=== PATIENT | female | born 1935 | race Caucasian/White ===

== ENCOUNTER 2016-07-28 04:50 | Emergency (ER) | payer MEDICARE, MEDICAID ==
[~2016-07-28] VITALS: Ht 160 cm; Wt 89.1 kg
[~2016-07-28 04:50] MED LIST: AMLO10 PO; ARIC10TA PO; ASPI1TAB69 PO; BACL10TA PO; CHOL1TAB41 PO; CLON0.1T PO; CO Q10CA PO; COLA100C3 PO; FURO1TAB60 PO; GABA300C5 PO; LEVO.05 PO; LOPE2CAP PO; LORA10TA PO; LOVA10TA PO; META48.53 PO; MIRA33504 PO; NAME10TA PO; NU-IRON PO; OXYC1TAB63 PO; POTA10TA2 PO; SERT-129 PO; TRAZ50TA12 PO; TUMS500C CHEW
[2016-07-28 05:01] VITALS: BP 161/76; PULSE 74; RESP 16; TEMP 99.2; O2SAT 92
[2016-07-28] MEDS ORDERED: GABA100C4 PO (05:15)
[2016-07-28] MEDS ORDERED: SODIUM CHLORIDE 0.9% FLUSH 10 ML FLUSH IVF PRN (06:15)
--- NOTE | 2016-07-28 06:46 | RADRPT ---
EXAM DATE/TIME: 07/28/2016 06:30 [facility] COMPARISON: CT BRAIN W/O CONTRAST, February 23, 2016, 11:08. INDICATIONS : Trauma, fell x2 days ago. Complains of head and neck pain. RADIATION DOSE: 31.33 CTDIvol (mGy) MEDICAL HISTORY : Cardiovascular disease. Congestive heart failure. Gastroesophageal reflux disease.Hypertension. Chron ic kidney disease. Uterine cancer. Renal calculi. SURGICAL HISTORY : Hysterectomy. Appendectomy. ENCOUNTER: Initial ACUITY: 2 days PAIN SCALE: 9/10 LOCATION: cranial TECHNIQUE: Multiple contiguous axial images were obtained of the head. Using automated exposure control and adj ustment of the mA and/or kV according to patient size, radiation dose was kept as low as reasonably a chievable to obtain optimal diagnostic quality images. FINDINGS: CEREBRUM: The ventricles are normal for age. No evidence of midline shift, mass lesion, hemorrhage or acute in farction. No extra-axial fluid collections are seen. POSTERIOR FOSSA: The cerebellum and brainstem are intact. The 4th ventricle is midline. The cerebellopontine angle i s unremarkable. EXTRACRANIAL: The visualized portion of the orbits is intact. No sphenoid sinus opacified. SKULL: The calvaria is intact. No evidence of skull fracture. CONCLUSION: 1. No acute findings. Stable white matter ischemic changes since February 2016. Chronic left sphenoid sinus disease. Darrius Vallejo MD on July 28, 2016 at 6:41 Board Certified Radiologist. This report was verified electronically.
--- NOTE | 2016-07-28 06:48 | RADRPT ---
EXAM DATE/TIME: 07/28/2016 06:24 [facility] COMPARISON: No previous studies available for comparison. INDICATIONS : Right shoulder pain. MEDICAL HISTORY : None. SURGICAL HISTORY : None. ENCOUNTER: Initial ACUITY: 1 day PAIN SCORE: 3/10 LOCATION: Bilateral Shoulders FINDINGS: Multiple view examination of the right shoulder demonstrates no evidence of fracture or dislocation. The glenohumeral and acromioclavicular joints are maintained. There is normal range of motion betwe en internal and external rotation. Bony mineralization is normal. CONCLUSION: 1. No acute findings. Darrius Vallejo MD on July 28, 2016 at 6:44 Board Certified Radiologist. This report was verified electronically.
--- NOTE | 2016-07-28 06:51 | RADRPT ---
EXAM DATE/TIME: 07/28/2016 06:30 [facility] COMPARISON: No previous studies available for comparison. INDICATIONS : Trauma, fell x2 days ago. Complains of head and neck pain. RADIATION DOSE: 20.34 CTDIvol (mGy) MEDICAL HISTORY : Gastroesophageal reflux disease. Congestive heart failure. Cardiovascular disease Hypertension. Chron ic kidney disease. Uterine cancer. Renal calculi. SURGICAL HISTORY : Hysterectomy. Appendectomy. ENCOUNTER: Initial ACUITY: 2 days PAIN SCALE: 8/10 LOCATION: neck TECHNIQUE: Volumetric scanning of the cervical spine was performed. Multiplanar reconstructions in the sagittal, coronal and oblique axial planes were performed. Using automated exposure control and adjustment o f the mA and/or kV according to patient size, radiation dose was kept as low as reasonably achievable to obtain optimal diagnostic quality images. FINDINGS: There is no acute fracture or spondylolisthesis and no prevertebral soft tissue swelling. Moderate de generative disc disease in the lower cervical spine. No significant canal stenosis. Mild facet arthro stuart. CONCLUSION: 1. Moderate degenerative disc disease in the lower cervical spine. Mild facet arthropathy. No acute b dashawn abnormality. No significant canal stenosis. Darrius Vallejo MD on July 28, 2016 at 6:47 Board Certified Radiologist. This report was verified electronically.
[2016-07-28 07:00] VITALS: BP 160/80; PULSE 68; RESP 18; O2SAT 94
--- NOTE | 2016-07-28 07:22 | PD ---
HPI Chief Complaint: Fall Time Seen by Provider: 07:10 Travel History International Travel<30 days: No Contact w/Intl Traveler<30days: No Traveled to known affect area: No History of Present Illness HPI 81-year-old female presents to the emergency department by EMS transport from local assisted living facility for complaint of head pain and neck pain after fall. Patient had fall on Friday evening and on Friday evening. Reportedly falls were not associated with loss of consciousness but was not witnessed. Patient denies other injury or complaint. No chest pain no rib pain no shortness of breath no back pain or abdominal pain no pelvic pain or extremity injury. Patient has history of dementia and provides minimal history. Patient also has history of atrial fibrillation, PFSH Past Medical History Hx Anticoagulant Therapy: Yes (WARFARIN) Anemia: Yes Arthritis: Yes Asthma: No Atrial Fibrillation: Yes Autoimmune Disease: No Anxiety: Yes Depression: Yes Heart Rhythm Problems: Yes Cancer: Yes (uterine) Cardiovascular Problems: Yes (CHF) High Cholesterol: Yes Chemotherapy: No Chest Pain: No Congestive Heart Failure: Yes COPD: No Cerebrovascular Accident: No Dementia: Yes Diabetes: No Diminished Hearing: No Gastrointestinal Disorders: Yes (PERITONITIS) GERD: Yes Genitourinary: Yes (UTI) Hiatal Hernia: No Hypertension: Yes Immune Disorder: No Kidney Stones: Yes Neurologic: Yes (NEUROPATHY ) Psychiatric: No Reproductive: No Respiratory: No Immunizations Current: No Migraines: No Radiation Therapy: No Renal Failure: Yes (CKD) Seizures: No Sickle Cell Disease: No Sleep Apnea: No Thyroid Disease: Yes (Pt takes synthroid) Ulcer: No Menopausal: Yes Past Surgical History Abdominal Surgery: No AICD: No Appendectomy: Yes Arteriovenous Shunt: No Cardiac Surgery: No Cholecystectomy: Yes Ear Surgery: No Endocrine Surgery: No Eye Surgery: Yes (cataract left eye) Genitourinary Surgery: No Gynecologic Surgery: Yes (C section) Hysterectomy: Yes Insulin Pump: No Joint Replacement: No Oral Surgery: No Pacemaker: No Thoracic Surgery: No Other Surgery: Yes Social History Alcohol Use: No Tobacco Use: No Substance Use: No Allergies-Medications (Allergen,Severity, Reaction): Coded Allergies: Celebrex (Verified Allergy, Severe, 07/28/16) Hydrocodone (Verified Allergy, Severe, 07/28/16) Codeine (Verified Allergy, Unknown, 07/28/16) Lidoderm (Verified Allergy, Unknown, 07/28/16) Talwin (Verified Allergy, Unknown, 07/28/16) Reported Meds & Prescriptions Reported Meds & Active Scripts Active Lovastatin 10 Mg Tab 10 Mg PO HS Reported Gabapentin 100 Mg Cap 300 Mg PO TID Sertraline (Sertraline HCl) 100 Mg Tab 200 Mg PO DAILY Vitamin D3 (Cholecalciferol) 10,000 Unit Tab 10,000 Units PO Q7D Co Q 10 (Coenzyme Q10 (Ubidecarenone)) 10 Mg Cap 10 Mg PO EVERY OTHER DAY Loperamide (Loperamide HCl) 2 Mg Cap 2 Mg PO DIRECTED PRN One capsule after each loose stool. Not to exceed 8 capsules per day. Baclofen 10 Mg Tab 10 Mg PO TID PRN Trazodone (Trazodone HCl) 50 Mg Tab 50 Mg PO HS Tums (Calcium Carbonate (Antacid)) 500 Mg Chew 500 Mg CHEW TID PRN Oxycodone-Acetaminophen 5-325 mg Tab 1 Tab PO BID PRN Namenda (Memantine) 10 Mg Tab 10 Mg PO BID Potassium Chloride ER (Potassium Chloride) 10 Meq Tab 10 Meq PO DAILY Metamucil Original Texture (Psyllium Hydrophilic Mucilloid) 48.57 % Pow 1 Scoop PO DAILY PRN 1 rounded TEASPOON in 8 oz of liquid at the first sign of irregularity. Synthroid (Levothyroxine Sodium) 50 Mcg Tab 50 Mcg PO DAILY Poly-Iron 150 (Polysaccharide Iron Complex) 150 Mg Cap 150 Mg PO DAILY Clonidine (Clonidine HCl) 0.1 Mg Tab 0.1 Mg PO DAILY Norvasc (Amlodipine Besylate) 10 Mg Tab 10 Mg PO DAILY Review of Systems ROS Limitations: Poor Historian Except as stated in HPI: all other systems reviewed are Neg General / Constitutional: No: Fever HENT: Positive: Headaches, Neck Pain Cardiovascular: No: Chest Pain or Discomfort Respiratory: No: Shortness of Breath Gastrointestinal: No: Vomiting, Abdominal Pain Genitourinary: No: Dysuria Musculoskeletal: No: Pain Skin: No Rash Neurologic: Positive: Headache Hematologic/Lymphatic: No: Easy Bruising Physical Exam Narrative GENERAL: Thinks well-developed elderly female in no acute distress no respiratory distress semi-: GCS 15 SKIN: Warm and dry. HEAD: Atraumatic. Normocephalic. EYES: Pupils equal and round. No scleral icterus. No injection or drainage. ENT: No nasal bleeding or discharge. Mucous membranes pink and moist. NECK: Trachea midline. No JVD. Posterior cervical spine tenderness/pain to palpation and with attempted range of motion. No bony step-off. CARDIOVASCULAR: Regular rate and rhythm. RESPIRATORY: No accessory muscle use. Clear to auscultation. Breath sounds equal bilaterally. GASTROINTESTINAL: Abdomen soft, non-tender, nondistended. Hepatic and splenic margins not palpable. MUSCULOSKELETAL: Extremities without clubbing, cyanosis, or edema. No obvious deformities. NEUROLOGICAL: Awake and alert. No obvious cranial nerve deficits. Motor grossly within normal limits. Five out of 5 muscle strength in the arms and legs. Normal speech. PSYCHIATRIC: Appropriate mood and affect; insight and judgment normal. Data Data Last Documented VS Vital Signs Date Time Temp Pulse Resp B/P Pulse Ox O2 Delivery O2 Flow Rate FiO2 07/28/16 07:00 68 18 160/80 94 Room Air 07/28/16 05:01 99.2 Orders Electrocardiogram (07/28/16 06:01) Basic Metabolic Panel (Bmp) (07/28/16 06:01) Complete Blood Count With Diff (07/28/16 06:01) Magnesium (Mg) (07/28/16 06:01) Ckmb (Isoenzyme) Profile (07/28/16 06:01) Troponin I (07/28/16 06:01) Act Partial Throm Time (Ptt) (07/28/16 06:01) Prothrombin Time / Inr (Pt) (07/28/16 06:01) Ua Includes Microscopic (07/28/16 06:01) Ct Brain W/O Iv Contrast(Rout) (07/28/16 06:01) Ct Cerv Spine W/O Contrast (07/28/16 06:01) Ecg Monitoring (07/28/16 06:01) Iv Access Insert/Monitor (07/28/16 06:01) Oximetry (07/28/16 06:01) Sodium Chloride 0.9% Flush (Ns Flush) (07/28/16 06:15) Apply Cervical Collar (07/28/16 06:01) Shoulder, Complete (>2vws) (07/28/16 ) Cath For Specimen (07/28/16 07:50) Labs Laboratory Tests Test 07/28/16 07:05 White Blood Count 8.6 TH/MM3 Red Blood Count 4.46 MIL/MM3 Hemoglobin 12.4 GM/DL Hematocrit 38.8 % Mean Corpuscular Volume 87.0 FL Mean Corpuscular Hemoglobin 27.9 PG Mean Corpuscular Hemoglobin 32.0 % Concent Red Cell Distribution Width 15.6 % Platelet Count 197 TH/MM3 Mean Platelet Volume 9.5 FL Neutrophils (%) (Auto) 82.1 % Lymphocytes (%) (Auto) 8.3 % Monocytes (%) (Auto) 8.2 % Eosinophils (%) (Auto) 0.9 % Basophils (%) (Auto) 0.5 % Neutrophils # (Auto) 7.1 TH/MM3 Lymphocytes # (Auto) 0.7 TH/MM3 Monocytes # (Auto) 0.7 TH/MM3 Eosinophils # (Auto) 0.1 TH/MM3 Basophils # (Auto) 0.0 TH/MM3 CBC Comment DIFF FINAL Differential Comment Prothrombin Time 10.7 SEC Prothromb Time International 1.0 RATIO Ratio Activated Partial 21.2 SEC Thromboplast Time MDM Medical Decision Making Medical Screen Exam Complete: Yes Emergency Medical Condition: Yes Medical Record Reviewed: Yes Interpretation(s) Last Impressions Head CT 07/28/16 06 Signed Impressions: Service Date/Time: Thursday, July 28, 2016 06:30 - CONCLUSION: 1. No acute findings. Stable white matter ischemic changes since February 2016. Chronic left sphenoid sinus disease. Darrius Vallejo MD Cervical Spine CT 07/28/16 0601 Signed Impressions: Service Date/Time: Thursday, July 28, 2016 06:30 - CONCLUSION: 1. Moderate degenerative disc disease in the lower cervical spine. Mild facet arthropathy. No acute bony abnormality. No significant canal stenosis. Darrius Vallejo MD Shoulder X-Ray 07/28/16 0000 Signed Impressions: Service Date/Time: Thursday, July 28, 2016 06:24 - CONCLUSION: 1. No acute findings. Darrius Vallejo MD Differential Diagnosis ICH OGDEN cervical spine sprain strain fracture contusion fracture cord injury sepsis UTI anemia coagulopathy Narrative Course Patient placed on monitor IV access obtained specimens collected and sent for resulting imaging studies ordered c-collar applied Patient's care signed over to Dr. Hassan at 7:05 AM Vane Benites MD July 28, 2016 07:22
[2016-07-28 07:24] LABS: AUTOMATED NEUTROPHIL # 7.1 TH/MM3 (1.8-7.7); BASOPHIL % 0.5 % (0.0-2.0); EOSINOPHIL # 0.1 TH/MM3 (0-0.4); EOSINOPHIL % 0.9 % (0.0-4.0); HEMATOCRIT 38.8 % (35.0-46.0); HEMO FLAGS DIFF FINAL; LYMPH % 8.3 % (9.0-44.0); LYMPHOCYTE # 0.7 TH/MM3 (1.0-4.8); MEAN CORPUSCULAR HEMOGLOBIN 27.9 PG (27.0-34.0); MONO % 8.2 % (0.0-8.0); NEUT % 82.1 % (16.0-70.0); PLATELET COUNT 197 TH/MM3 (150-450); RED BLOOD COUNT 4.46 MIL/MM3 (4.00-5.30); RED CELL DISTRIBUTION WIDTH 15.6 % (11.6-17.2); WHITE BLOOD COUNT 8.6 TH/MM3 (4.0-11.0)
[2016-07-28 07:48] LABS: APTT (PATIENT) 21.2 SEC (24.3-30.1); PROTHROMBIN TIME - PATIENT 10.7 SEC (9.8-11.6)
[2016-07-28 07:54] LABS: ANION GAP 7 MEQ/L (5-15); BLOOD UREA NITROGEN 14 MG/DL (7-18); CHLORIDE 103 MEQ/L (98-107); GLOMERULAR FILTRATION RATE 57 ML/MIN (>89); SODIUM (NA) 138 MEQ/L (136-145)
[2016-07-28 08:05] LABS: CREATINE KINASE 56 U/L (26-192)
[2016-07-28 08:36] LABS: BACTERIA, URINE MANY /hpf; BLOOD, URINE NEG (NEG); GLUCOSE,URINE NEG (NEG); KETONE, URINE NEG (NEG); MUCUS URINE FEW /lpf (OCC); NITRITE,URINE POS (NEG); PH, URINE 7.5 (5.0-8.5); SQUAMOUS EPITHELIAL CELL URINE 90 /hpf (0-5); URINE COLOR YELLOW (YELLW/STRAW)
[2016-07-28] MEDS ORDERED: CEPH500C PO (08:46)
--- NOTE | 2016-07-28 08:46 | PD ---
Data Data Last Documented VS Vital Signs Date Time Temp Pulse Resp B/P Pulse Ox O2 Delivery O2 Flow Rate FiO2 07/28/16 07:00 68 18 160/80 94 Room Air 07/28/16 05:01 99.2 Orders Electrocardiogram (07/28/16 06:01) Basic Metabolic Panel (Bmp) (07/28/16 06:01) Complete Blood Count With Diff (07/28/16 06:01) Magnesium (Mg) (07/28/16 06:01) Ckmb (Isoenzyme) Profile (07/28/16 06:01) Troponin I (07/28/16 06:01) Act Partial Throm Time (Ptt) (07/28/16 06:01) Prothrombin Time / Inr (Pt) (07/28/16 06:01) Ua Includes Microscopic (07/28/16 06:01) Ct Brain W/O Iv Contrast(Rout) (07/28/16 06:01) Ct Cerv Spine W/O Contrast (07/28/16 06:01) Ecg Monitoring (07/28/16 06:01) Iv Access Insert/Monitor (07/28/16 06:01) Oximetry (07/28/16 06:01) Sodium Chloride 0.9% Flush (Ns Flush) (07/28/16 06:15) Apply Cervical Collar (07/28/16 06:01) Shoulder, Complete (>2vws) (07/28/16 ) Cath For Specimen (07/28/16 07:50) Labs Laboratory Tests Test 07/28/16 07/28/16 07:05 08:15 White Blood Count 8.6 TH/MM3 Red Blood Count 4.46 MIL/MM3 Hemoglobin 12.4 GM/DL Hematocrit 38.8 % Mean Corpuscular Volume 87.0 FL Mean Corpuscular Hemoglobin 27.9 PG Mean Corpuscular Hemoglobin 32.0 % Concent Red Cell Distribution Width 15.6 % Platelet Count 197 TH/MM3 Mean Platelet Volume 9.5 FL Neutrophils (%) (Auto) 82.1 % Lymphocytes (%) (Auto) 8.3 % Monocytes (%) (Auto) 8.2 % Eosinophils (%) (Auto) 0.9 % Basophils (%) (Auto) 0.5 % Neutrophils # (Auto) 7.1 TH/MM3 Lymphocytes # (Auto) 0.7 TH/MM3 Monocytes # (Auto) 0.7 TH/MM3 Eosinophils # (Auto) 0.1 TH/MM3 Basophils # (Auto) 0.0 TH/MM3 CBC Comment DIFF FINAL Differential Comment Prothrombin Time 10.7 SEC Prothromb Time International 1.0 RATIO Ratio Activated Partial 21.2 SEC Thromboplast Time Sodium Level 138 MEQ/L Potassium Level 4.0 MEQ/L Chloride Level 103 MEQ/L Carbon Dioxide Level 28.0 MEQ/L Anion Gap 7 MEQ/L Blood Urea Nitrogen 14 MG/DL Creatinine 0.94 MG/DL Estimat Glomerular Filtration 57 ML/MIN Rate Random Glucose 115 MG/DL Calcium Level 8.8 MG/DL Magnesium Level 2.0 MG/DL Total Creatine Kinase 56 U/L Troponin I LESS THAN 0.02 NG/ML Urine Color YELLOW Urine Turbidity CLOUDY Urine pH 7.5 Urine Specific [place] 1.008 Urine Protein 30 mg/dL Urine Glucose (UA) NEG mg/dL Urine Ketones NEG mg/dL Urine Occult Blood NEG Urine Nitrite POS Urine Bilirubin NEG Urine Urobilinogen LESS THAN 2.0 MG/DL Urine Leukocyte Esterase SMALL Urine RBC 1 /hpf Urine WBC 3 /hpf Urine Squamous Epithelial 90 /hpf Cells Urine Amorphous Sediment FEW Urine Bacteria MANY /hpf Urine Mucus FEW /lpf Microscopic Urinalysis Comment [facility] Supervised Visit with LJ: No Interpretation(s) No leukocytosis Electrolytes are reassuring Troponin is normal Urinalysis: Urinary tract infection Differential Diagnosis Electrolyte abnormality, dehydration, intracranial hemorrhage, proximal humerus fracture, urinary tract infection Narrative Course This is an 81-year-old female who presents to the emergency department having had a fall. She was placed on a monitor and an IV was established. Labs are obtained which were all reassuring. Patient does have evidence of a urinary tract infection on catheterized specimen. Patient was given a dose of IV antibiotics in the emergency department. She does not appear septic at this time and I think can appropriately be treated as an outpatient. Diagnosis Primary Impression: Urinary tract infection Qualified Code: N30.00 - Acute cystitis without hematuria Patient Instructions: General Instructions Additional Instruction: If you develop fever, persistent vomiting, back pain, or inability to eat return to the emergency department as your urine infection may have progressed to a kidney infection. Complete your antibiotics as prescribed. Stay well hydrated with Gatorade or water. Followup with your primary care physician in 2-3 days if your symptoms have not resolved. Med/Other Pt SpecificInfo: Prescription(s) given Scripts Cephalexin 500 Mg [id number] Mg PO BID 7 Days Ref 0 Prov:Charlene Roca MD 07/28/16 Disposition: 01 DISCHARGE HOME Condition: Stable Charlene Roca MD July 28, 2016 08:46
[2016-07-28] MEDS ORDERED: cefTRIAXone INJ 1,000 MG in SODIUM CHLORIDE 0.9% INJ 100 ML IV ONE (09:00)
[2016-07-28 10:30] VITALS: BP 168/71; PULSE 72; RESP 19; O2SAT 95
--- NOTE | 2016-07-28 14:57 | EKG ---
Date Performed: 07/28/2016 Time Performed: 05:29:42 PTAGE: 81 years EKG: Sinus rhythm MARKED LEFT AXIS DEVIATION MODERATE INTRAVENTRICULAR CONDUCTION DELAY MODERATE VOLTAGE CRITERIA FOR LVH, CONSIDER NORMAL VARIANT ABNORMAL ECG PREVIOUS TRACING : 02/23/2016 11.21 Since previous tracing, no significant change noted DOCTOR: Palmer Le Interpretating Date/Time 07/28/2016 14:55:43
== END 2016-07-28 12:59 | disposition home or self-care (01) ==
LOC: NEPC 04:50
DX: N30.00 Acute cystitis without hematuria (principal); M54.2 Cervicalgia; I48.91 Unspecified atrial fibrillation; F03.90 Unspecified dementia, unspecified severity, without behavioral disturbance, psychotic disturbance, mood disturbance, and anxiety; I50.9 Heart failure, unspecified; I12.9 Hypertensive chronic kidney disease with stage 1 through stage 4 chronic kidney disease, or unspecified chronic kidney disease; N18.9 Chronic kidney disease, unspecified; Z79.01 Long term (current) use of anticoagulants; Z79.899 Other long term (current) drug therapy
CPT/HCPCS: 70450; 72125; 73030; 80048; 81001; 82550; 83735; 84484; 85025; 85610; 85730; 93005; 96365; 99285; J0696; P9612

== ENCOUNTER 2016-11-11 15:58 | Emergency (ER) | payer MEDICARE, MEDICAID ==
[~2016-11-11] VITALS: Ht 162.6 cm; Wt 75.0 kg
[~2016-11-11 15:58] MED LIST changes: -ARIC10TA PO; -ASPI1TAB69 PO; +CEPH500C PO; -COLA100C3 PO; -FURO1TAB60 PO; +GABA100C4 PO; -GABA300C5 PO; -LORA10TA PO; -MIRA33504 PO
[2016-11-11 16:15] VITALS: BP 149/77; PULSE 83; RESP 20; TEMP 98.9; O2SAT 92
--- NOTE | 2016-11-11 17:01 | PD ---
HPI Chief Complaint: Fall Time Seen by Provider: 16:16 Travel History International Travel<30 days: No Contact w/Intl Traveler<30days: No Traveled to known affect area: No History of Present Illness HPI 81-year-old female presents to the emergency department via EMS from a left for evaluation after fall. Apparently she fell trying to transfer herself from her wheelchair. She is here because she hit her head and it is policy to send her to the emergency department. The patient is confused has history of dementia. The patient denies any injury herself. She denies any neck or back pain. No chest pain or abdominal pain or nausea, vomiting, diarrhea. She does report history of chronic weakness which is unchanged. Patient is wearing a neck brace. She states this is due to chronic pain. According to med list from the nursing facility, she is not on any anticoagulants at this time. PFSH Past Medical History Hx Anticoagulant Therapy: Yes (WARFARIN) Anemia: Yes Arthritis: Yes Asthma: No Atrial Fibrillation: Yes Autoimmune Disease: No Anxiety: Yes Depression: Yes Heart Rhythm Problems: Yes Cancer: Yes (uterine) Cardiovascular Problems: Yes (CHF) High Cholesterol: Yes Chemotherapy: No Chest Pain: No Congestive Heart Failure: Yes COPD: No Cerebrovascular Accident: No Dementia: Yes Diabetes: No Diminished Hearing: No Gastrointestinal Disorders: Yes (PERITONITIS) GERD: Yes Genitourinary: Yes (UTI) Hiatal Hernia: No Hypertension: Yes Immune Disorder: No Kidney Stones: Yes Neurologic: Yes (NEUROPATHY ) Psychiatric: No Reproductive: No Respiratory: No Immunizations Current: No Migraines: No Radiation Therapy: No Renal Failure: Yes (CKD) Seizures: No Sickle Cell Disease: No Sleep Apnea: No Thyroid Disease: Yes (Pt takes synthroid) Ulcer: No Menopausal: Yes Past Surgical History Abdominal Surgery: No AICD: No Appendectomy: Yes Arteriovenous Shunt: No Cardiac Surgery: No Cholecystectomy: Yes Ear Surgery: No Endocrine Surgery: No Eye Surgery: Yes (cataract left eye) Genitourinary Surgery: No Gynecologic Surgery: Yes (C section) Hysterectomy: Yes Insulin Pump: No Joint Replacement: No Oral Surgery: No Pacemaker: No Thoracic Surgery: No Other Surgery: Yes Social History Alcohol Use: No Tobacco Use: No Substance Use: No Allergies-Medications (Allergen,Severity, Reaction): Coded Allergies: celecoxib (Unverified Allergy, Severe, 10/15/16) hydrocodone (Unverified Allergy, Severe, 10/15/16) codeine (Unverified Allergy, Unknown, 10/15/16) lidocaine (Unverified Allergy, Unknown, 10/15/16) pentazocine (Unverified Allergy, Unknown, 10/15/16) Reported Meds & Prescriptions Reported Meds & Active Scripts Active Cephalexin 500 Mg Cap 500 Mg PO BID 7 Days Lovastatin 10 Mg Tab 10 Mg PO HS Reported Gabapentin 100 Mg Cap 300 Mg PO TID Sertraline (Sertraline HCl) 100 Mg Tab 200 Mg PO DAILY Vitamin D3 (Cholecalciferol) 10,000 Unit Tab 10,000 Units PO Q7D Co Q 10 (Coenzyme Q10 (Ubidecarenone)) 10 Mg Cap 10 Mg PO EVERY OTHER DAY Loperamide (Loperamide HCl) 2 Mg Cap 2 Mg PO DIRECTED PRN One capsule after each loose stool. Not to exceed 8 capsules per day. Baclofen 10 Mg Tab 10 Mg PO TID PRN Trazodone (Trazodone HCl) 50 Mg Tab 50 Mg PO HS Tums (Calcium Carbonate (Antacid)) 500 Mg Chew 500 Mg CHEW TID PRN Oxycodone-Acetaminophen 5-325 mg Tab 1 Tab PO BID PRN Namenda (Memantine) 10 Mg Tab 10 Mg PO BID Potassium Chloride ER (Potassium Chloride) 10 Meq Tab 10 Meq PO DAILY Metamucil Original Texture (Psyllium Hydrophilic Mucilloid) 48.57 % Pow 1 Scoop PO DAILY PRN 1 rounded TEASPOON in 8 oz of liquid at the first sign of irregularity. Synthroid (Levothyroxine Sodium) 50 Mcg Tab 50 Mcg PO DAILY Poly-Iron 150 (Polysaccharide Iron Complex) 150 Mg Cap 150 Mg PO DAILY Clonidine (Clonidine HCl) 0.1 Mg Tab 0.1 Mg PO DAILY Norvasc (Amlodipine Besylate) 10 Mg Tab 10 Mg PO DAILY Review of Systems Except as stated in HPI: all other systems reviewed are Neg Physical Exam Narrative GENERAL: Well-nourished, well-developed elderly female patient, afebrile. SKIN: Focused skin assessment warm/dry. HEAD: Normocephalic. Atraumatic. EYES: No scleral icterus. No injection or drainage. NECK: Supple, trachea midline. No JVD or lymphadenopathy. CARDIOVASCULAR: Regular rate and rhythm without murmurs, gallops, or rubs. RESPIRATORY: Breath sounds equal bilaterally. No accessory muscle use. Lungs sounds are clear to auscultation. GASTROINTESTINAL: Abdomen soft, non-tender, nondistended. MUSCULOSKELETAL: No cyanosis, or edema. BACK: Nontender without obvious deformity. No CVA tenderness. Patient has soft collar on. No tenderness to palpation. Data Data Last Documented VS Vital Signs Date Time Temp Pulse Resp B/P (MAP) Pulse Ox O2 Delivery O2 Flow Rate FiO2 11/11/16 16:15 83 20 149/77 (101) [address] Brain W/O Iv Contrast(Rout) (11/11/16 ) Ct Cerv Spine W/O Contrast (11/11/16 ) [facility] Medical Decision Making Medical Screen Exam Complete: Yes Emergency Medical Condition: Yes Medical Record Reviewed: Yes Interpretation(s) CT brain CONCLUSION: 1. Nonspecific white matter changes. 2. Questionable hyperdensity left parietal lobe which is likely artifact. No definite hemorrhage. 3. Left chronic sphenoid sinus disease. CT cervical spine - CONCLUSION: 1. Diffuse cervical spondylosis from C3 through C7. 2. Multilevel foraminal narrowing is stable compared to the previous examination. 3. No acute fracture or prevertebral soft tissue swelling. Differential Diagnosis Closed head injury versus intracranial abnormality versus fall versus chronic neck pain versus acute injury Narrative Course 81-year-old female presents to the emergency department for evaluation after she fell trying to transfer from her wheelchair to her bed. The patient has history dementia and is confused. No other complaints at this time. CT of the brain and cervical spine are ordered and pending. CT of the brain shows nonspecific white matter changes, questionable hyperdensity left parietal lobe which is likely artifact, DrOlga definite hemorrhage, left chronic sphenoid sinus disease. CT of the cervical spine shows diffuse cervical spondylosis from C3 through C7, multilevel foraminal narrowing is stable compared to previous examination, no acute fracture or prevertebral soft tissue swelling. I spoke to Dr. Magaña who read CT scan of the brain. I have low suspicion of brain hemorrhage. He states that he believes this is due to artifact in no repeat imaging is indicated at this time. Patient will be discharged back to facility. Diagnosis Primary Impression: Closed head injury Qualified Codes: S09.90XA - Unspecified injury of head, initial encounter Additional Impression: Fall Qualified Codes: W19.XXXA - Unspecified fall, initial encounter Referrals: Primary Care Physician call for appointment Patient Instructions: Fall Prevention for Older Adults (ED), General Instructions, Head Injury (ED) Additional Instructions: Follow-up with your primary care physician. Return to the emergency department for any acute worsening of symptoms. Med/Other Pt SpecificInfo: No Change to Meds Disposition: 01 DISCHARGE HOME Condition: Stable NakulShola cardRoslyn ARNP Nov 11, 2016 17:01
--- NOTE | 2016-11-11 17:39 | RADRPT ---
EXAM DATE/TIME: 11/11/2016 17:24 [facility] COMPARISON: CT BRAIN W/O CONTRAST, July 28, 2016, 6:30. INDICATIONS : Patient fell and hit head. RADIATION DOSE: 30.81 CTDIvol (mGy) ; Patient motion MEDICAL HISTORY : Dementia. Hypertension. Congestive heart failure.Uterine cancer SURGICAL HISTORY : Hysterectomy. ENCOUNTER: Initial ACUITY: 1 day PAIN SCALE: 4/10 LOCATION: cranial TECHNIQUE: Multiple contiguous axial images were obtained of the head. Using automated exposure control and adj ustment of the mA and/or kV according to patient size, radiation dose was kept as low as reasonably a chievable to obtain optimal diagnostic quality images. DICOM format image data is available electro nically for review and comparison. FINDINGS: CEREBRUM: Scattered areas of low-attenuation throughout the white matter. Questionable hyperdensity left pariet al lobe likely artifact. There is some motion artifact present. The ventricles are normal for age. N o evidence of midline shift, mass lesion, hemorrhage or acute infarction. No extra-axial fluid colle ctions are seen. POSTERIOR FOSSA: The cerebellum and brainstem are intact. The 4th ventricle is midline. The cerebellopontine angle i s unremarkable. EXTRACRANIAL: The visualized portion of the orbits is intact. Opacification left sphenoid sinus. SKULL: The calvaria is intact. No evidence of skull fracture. CONCLUSION: 1. Nonspecific white matter changes. 2. Questionable hyperdensity left parietal lobe which is likely artifact. No definite hemorrhage. 3. Left chronic sphenoid sinus disease. Vasu Magaña MD on November 11, 2016 at 17:33 Board Certified Radiologist. This report was verified electronically.
--- NOTE | 2016-11-11 17:54 | RADRPT ---
EXAM DATE/TIME: 11/11/2016 17:24 [facility] COMPARISON: CT CERVICAL SPINE W/O CONTRAST, July 28, 2016, 6:30. INDICATIONS : Patient fell and hit head. RADIATION DOSE: 14.78 CTDIvol (mGy) MEDICAL HISTORY : Hypertension. Congestive heart failure. Dementia. Uterine cancer. SURGICAL HISTORY : Hysterectomy. ENCOUNTER: Initial ACUITY: 1 day PAIN SCALE: 0/10 LOCATION: Neck TECHNIQUE: Volumetric scanning of the cervical spine was performed. Multiplanar reconstructions in the sagittal, coronal and oblique axial planes were performed. Using automated exposure control and adjustment o f the mA and/or kV according to patient size, radiation dose was kept as low as reasonably achievable to obtain optimal diagnostic quality images. DICOM format image data is available electronically f or review and comparison. FINDINGS: Diffuse cervical spondylosis is noted from C3 through C7. Disc space narrowing as well as anterior a nd posterior osteophytic spurring is noted at these levels. There is no acute fracture or prevertebr al soft tissue swelling. No bony spinal canal stenosis is noted. The bony relationship and alignmen t between C1 and C2 is well maintained. Multilevel foraminal narrowing is noted bilaterally and is u nchanged compared to the previous examination in July 2016. CONCLUSION: 1. Diffuse cervical spondylosis from C3 through C7. 2. Multilevel foraminal narrowing is stable compared to the previous examination. 3. No acute fracture or prevertebral soft tissue swelling. Ritchie Brooks MD on November 11, 2016 at 17:45 Board Certified Radiologist. This report was verified electronically.
[2016-11-11 19:30] VITALS: BP 142/65; PULSE 69; RESP 18; O2SAT 97
[2016-11-11 21:11] VITALS: BP 142/65; PULSE 72; RESP 18; O2SAT 96
--- NOTE | 2016-11-11 21:23 | PD ---
Physical Exam Date Seen by Provider: Nov 11, 2016 Narrative The nurse is concerned about discharging this patient back to her correction. The patient is not able to assist much with transfer from the bed to the wheelchair. She is not able to stand. On my exam, the patient is sound sleep. She is not arousable to gentle shaking. I have added a CBC, metabolic panel and UA to her workup. Data Data Last Documented VS Vital Signs Date Time Temp Pulse Resp B/P (MAP) Pulse Ox O2 Delivery O2 Flow Rate FiO2 11/11/16 23:30 63 18 117/68 (84) 94 Room Air 11/11/16 16:[address] Brain W/O Iv Contrast(Rout) (11/11/16 ) Ct Cerv Spine W/O Contrast (11/11/16 ) Electrocardiogram (11/11/16 21:19) Basic Metabolic Panel (Bmp) (11/11/16 21:19) Complete Blood Count With Diff (11/11/16 21:19) Urinalysis - C+S If Indicated (11/11/16 21:19) Lactic Acid Sepsis Protocol (11/11/16 21:19) Cath For Specimen (11/11/16 21:19) Urine Culture (11/11/16 21:40) Ceftriaxone Inj (Rocephin Inj) (11/11/16 23:00) Sodium Chlor 0.9% 1000 Ml Inj (Ns 1000 M (11/11/16 23:00) Labs Laboratory Tests Test 11/11/16 21:40 11/11/16 21:45 Urine Color YELLOW Urine Turbidity HAZY Urine pH 5.5 Urine Specific [place] 1.017 Urine Protein TRACE mg/dL Urine Glucose (UA) NEG mg/dL Urine Ketones NEG mg/dL Urine Occult Blood NEG Urine Nitrite POS Urine Bilirubin NEG Urine Urobilinogen LESS THAN 2.0 MG/DL Urine Leukocyte Esterase SMALL Urine RBC 1 /hpf Urine WBC 3 /hpf Urine Squamous Epithelial Cells 7 /hpf Urine Bacteria MANY /hpf Urine Hyaline Casts 9 /lpf Urine Mucus FEW /lpf Microscopic Urinalysis Comment CULTURE INDICATED White Blood Count 6.9 TH/MM3 Red Blood Count 4.30 MIL/MM3 Hemoglobin 12.6 GM/DL Hematocrit 38.7 % Mean Corpuscular Volume 89.9 FL Mean Corpuscular Hemoglobin 29.2 PG Mean Corpuscular Hemoglobin Concent 32.5 % Red Cell Distribution Width 15.1 % Platelet Count 212 TH/MM3 Mean Platelet Volume 10.0 FL Neutrophils (%) (Auto) 70.6 % Lymphocytes (%) (Auto) 16.9 % Monocytes (%) (Auto) 8.9 % Eosinophils (%) (Auto) 2.9 % Basophils (%) (Auto) 0.7 % Neutrophils # (Auto) 4.8 TH/MM3 Lymphocytes # (Auto) 1.2 TH/MM3 Monocytes # (Auto) 0.6 TH/MM3 Eosinophils # (Auto) 0.2 TH/MM3 Basophils # (Auto) 0.0 TH/MM3 CBC Comment DIFF FINAL Differential Comment Blood Urea Nitrogen 9 MG/DL Creatinine 0.70 MG/DL Random Glucose 96 MG/DL Calcium Level 8.8 MG/DL Sodium Level 141 MEQ/L Potassium Level 3.3 MEQ/L Chloride Level 102 MEQ/L Carbon Dioxide Level 31.2 MEQ/L Anion Gap 8 MEQ/L Estimat Glomerular Filtration Rate 80 ML/MIN Lactic Acid Level 0.8 mmol/L MDM Supervised Visit with LJ: No Interpretation(s) EKG shows a sinus rhythm. Artifact. No acute ischemic change. Narrative Course Patient is here following a fall from her wheelchair. She has been ruled out for brain bleed. The nurse is reluctant to send her back to the correction because she is weak and has a depressed mental status. CBC Diagram 11/11/16 21:45 [place] 0.8 UA>>+ nitrite, small LE, many bact Rocephin and a L of IVF ordered. Diagnosis Primary Impression: Closed head injury Qualified Codes: S09.90XA - Unspecified injury of head, initial encounter Additional Impressions: Fall Qualified Codes: W19.XXXA - Unspecified fall, initial encounter UTI (urinary tract infection) Qualified Codes: N30.00 - Acute cystitis without hematuria Referrals: Primary Care Physician call for appointment Patient Instructions: General Instructions, Fall Prevention for Older Adults ( ED), Head Injury (ED) Departure Forms: Tests/Procedures Additional Instruction: Follow-up with your primary care physician. Return to the emergency department for any acute worsening of symptoms. Disposition: 01 DISCHARGE HOME Condition: Stable Maribel Basurto MD Nov 11, 2016 21:23
[2016-11-11 22:20] LABS: AUTOMATED NEUTROPHIL # 4.8 TH/MM3 (1.8-7.7); BASOPHIL % 0.7 % (0.0-2.0); EOSINOPHIL # 0.2 TH/MM3 (0-0.4); EOSINOPHIL % 2.9 % (0.0-4.0); HEMATOCRIT 38.7 % (35.0-46.0); HEMO FLAGS DIFF FINAL; LYMPH % 16.9 % (9.0-44.0); LYMPHOCYTE # 1.2 TH/MM3 (1.0-4.8); MEAN CELL VOLUME 89.9 FL (80.0-100.0); MEAN CORPUSCULAR HEMOGLOBIN 29.2 PG (27.0-34.0); MEAN CORPUSCULAR HGB CONC 32.5 % (32.0-36.0); MONO % 8.9 % (0.0-8.0); NEUT % 70.6 % (16.0-70.0); PLATELET COUNT 212 TH/MM3 (150-450); RED CELL DISTRIBUTION WIDTH 15.1 % (11.6-17.2); WHITE BLOOD COUNT 6.9 TH/MM3 (4.0-11.0)
[2016-11-11 22:27] LABS: BACTERIA, URINE MANY /hpf; BLOOD, URINE NEG (NEG); COMMENT (UR) CULTURE INDICATED; CULTURE IF INDICATED CULTURE INDICATED; GLUCOSE,URINE NEG (NEG); HYALINE CAST, URINE 9 /lpf (RARE); KETONE, URINE NEG (NEG); MUCUS URINE FEW /lpf (OCC); NITRITE,URINE POS (NEG); PH, URINE 5.5 (5.0-8.5); SQUAMOUS EPITHELIAL CELL URINE 7 /hpf (0-5); URINE COLOR YELLOW (YELLW/STRAW)
[2016-11-11 22:53] LABS: BICARBONATE 31.2 MEQ/L (21.0-32.0); POTASSIUM 3.3 MEQ/L (3.5-5.1)
[2016-11-11] MEDS ORDERED: SODIUM CHLOR 0.9% 1000 ML INJ 1,000 ML IV ONE (23:00)
[2016-11-11] MEDS ORDERED: cefTRIAXone INJ 1,000 MG in SODIUM CHLORIDE 0.9% INJ 100 ML IV ONE (23:00)
[2016-11-11 23:30] VITALS: BP 117/68; PULSE 63; RESP 18; O2SAT 94
[2016-11-12] MEDS ORDERED: CEPH-460 PO (06:59)
[2016-11-12 07:50] VITALS: BP 145/63; PULSE 71; RESP 18; O2SAT 93
--- NOTE | 2016-11-12 14:01 | EKG ---
Date Performed: 11/11/2016 Time Performed: 21:32:56 PTAGE: 81 years EKG: Sinus rhythm LEFT ANTERIOR FASCICULAR BLOCK ABNORMAL ECG Compared to prior tracing no significant change PREVIOUS TRACING : 07/28/2016 05.29 DOCTOR: Eli Delarosa Interpretating Date/Time 11/12/2016 13:56:08
== END 2016-11-12 11:34 | disposition home or self-care (01) ==
LOC: NEPC 15:58
DX: S09.90XA Unspecified injury of head, initial encounter (principal); N39.0 Urinary tract infection, site not specified; R53.1 Weakness; G89.29 Other chronic pain; B96.1 Klebsiella pneumoniae [K. pneumoniae] as the cause of diseases classified elsewhere; I44.4 Left anterior fascicular block; R94.31 Abnormal electrocardiogram [ECG] [EKG]; J32.3 Chronic sphenoidal sinusitis; W05.0XXA Fall from non-moving wheelchair, initial encounter
CPT/HCPCS: 70450; 72125; 80048; 81001; 83605; 85025; 87077; 87086; 87186; 93005; 96374; 99285; J0696; J7030